=== PATIENT | female | born 1975 | race Caucasian/White ===

== ENCOUNTER 2017-10-30 08:20 | Outpatient (CLI) | payer OTHER | END 2017-10-30 20:00 | disposition home or self-care (01) | LOC: SMA 08:20 | PROVIDERS: ATTEND Family Medicine | DX: Z12.31 Encounter for screening mammogram for malignant neoplasm of breast (principal); R92.1 Mammographic calcification found on diagnostic imaging of breast | CPT/HCPCS: 77067 ==

== ENCOUNTER 2019-04-02 09:17 | Outpatient (CLI) | payer OTHER | END 2019-04-03 08:47 | disposition home or self-care (01) | LOC: SMA 09:17 | DX: Z12.31 Encounter for screening mammogram for malignant neoplasm of breast (principal) | CPT/HCPCS: 77067 ==